=== PATIENT | male | born 1950 | race Caucasian/White ===

== ENCOUNTER → 2023-04-24 12:00 | Outpatient (CLI) | payer OTHER, SELFPAY ==
--- NOTE | 2023-04-24 | DI.ECHO.S_ITS ---
[facility] +---------+ : : [address] : [address] : : : : [id number] : : : : Phone: [phone]---------+ Echocardiogram Report + + :Name: KESHAWN SHAH Study Date: 04/24/2023 Height: 74 in : :[facility] ReadingLocation: Weight: 292 lb : : Gender: Male BSA: 2.6 m2 : :: 1950 Age: 73 yrs BP: 138/83 mmHg: :Reason For Study: HEART DISEASE : :Ordering Physician: MARGARET, : :SONAL Performed By: Betty Watkins : :Referring: SONAL ROBLES : + + Interpretation Summary The left ventricle is normal in size. The ejection fraction is estimated to be 50-55%. The right ventricle is normal in size and function. Aortic valve not well-visualized. Appears to have mild to moderate aortic calcification. No significant critical aortic stenosis seen. Trivial aortic regurgitation. There is mild luminal irregularity and echogenicity in the abdominal aorta, suggestive of aortic atherosclerotic disease. The IVC is of normal diameter and collapses greater than 50% with a sniff. This suggests a low right atrial pressure of 3 mm Hg. Procedure: A two-dimensional transthoracic echocardiogram with color flow and Doppler was performed. The study quality was technically adequate. There is no prior echocardiogram noted for this patient. The patient was in sinus rhythm with heart rates between 69-86 bpm during the exam. Left Ventricle: The left ventricle is normal in size. Left ventricular wall thickness is borderline increased. There is no thrombus. The ejection fraction is estimated to be 50-55%. There is basal inferior wall hypokinesis. Diastolic parameters suggest a relaxation abnormality of the left ventricle, consistent with probable normal filling pressures. Right Ventricle: The right ventricle is normal in size and function. Atria: The left atrial size is normal. Right atrial size is normal. There is no Doppler evidence for an interatrial shunt. Mitral Valve: The mitral valve leaflets appear mildly thickened, but open well. There is mild to moderate mitral annular calcification. The mitral valve chordae are thickened and/or calcified. No significant mitral valve stenosis. There is trace mitral regurgitation. Aortic Valve: Aortic valve not well-visualized. Appears to have mild to moderate aortic calcification. No significant critical aortic stenosis seen. Trivial aortic regurgitation. The peak aortic velocity is 1.9 m/sec. The aortic valve mean gradient is 9 mmHg. There is trace aortic regurgitation. Tricuspid Valve: The tricuspid valve is normal in structure and function. There is trace tricuspid regurgitation. Pulmonary artery pressures cannot be estimated because of the lack of a measurable TR jet velocity. Pulmonic Valve: The pulmonic valve is not well visualized. There is no pulmonic valvular regurgitation. Great Vessels: The aortic root is normal size. The dimensions of the ascending aorta are normal. There is mild luminal irregularity and echogenicity in the abdominal aorta, suggestive of aortic atherosclerotic disease. The IVC is of normal diameter and collapses greater than 50% with a sniff. This suggests a low right atrial pressure of 3 mm Hg. Pericardium/ Pleura There is no pericardial effusion. There is an anterior echo-free space consistent with a fat pad. There is no pleural effusion. MMode/2D Measurements & Calculations LVIDd: 5.7 cm LVOT diam: 2.6 cm LVIDs: 3.9 cm asc Aorta Diam: 3.7 cm FS: 32.2 % Ao Arch Diam (Prox Trans): 3.4 cm IVSd: 1.1 cm LVPWd: 1.0 cm LV cooper. diameter/BSA (cm/m^2): 2.3 LV sys. diameter/BSA (cm/m^2): 1.5 LA A2 area: 20.2 cm2 RA long axis: 5.5 cm LA A4 area: 20.8 cm2 RA area: 19.5 cm2 LA length (vol): 5.4 cm RA vol: 59.0 ml LA vol: 66.1 ml RA : 23.1 ml/m2 LA vol index: 25.9 ml/m2 IVC diam: 1.5 cm RVD1 (basal): 3.4 cm TAPSE: 2.1 cm Doppler Measurements & Calculations Ao V2 max: 190.6 cm/sec LVOT Max Ezio: 80.3 cm/sec Ao V2 mean: 141.9 cm/sec LV V1 max P.6 mmHg Ao max P.5 mmHg LV V1 VTI: 17.9 cm Ao mean P.9 mmHg BRADY(I,D): 2.5 cm2 Ao V2 VTI: 38.4 cm BRAYD(V,D): 2.3 cm2 sev ratio: 0.47 BRADY indexed to BSA (cm^2/m^2): 0.98 MV E max ezio: 60.2 cm/sec PA V2 max: 87.2 cm/sec MV A max ezio: 110.0 cm/sec PA V2 mean: 65.3 cm/sec MV E/A: 0.55 PA mean P.8 mmHg Med Peak E' Ezio: 6.3 cm/sec PA pr(Accel): 22.5 mmHg E/E' med: 9.6 Lat Peak E' Ezio: 7.1 cm/sec E/E' lat: 8.5 E/e' average: 9.1 MV dec time: 0.27 sec SV(LVOT): 96.6 ml Reading Physician:02:43 PM
== END ==
PROVIDERS: Referring Provider Neuromusculoskeletal Medicine, Sports Medicine; Visit Provider Neuromusculoskeletal Medicine, Sports Medicine
DX: I34.81 Nonrheumatic mitral (valve) annulus calcification (principal); I51.9 Heart disease, unspecified
CPT/HCPCS: 93306